=== PATIENT | male | born 1955 | race Caucasian/White ===

== ENCOUNTER 2019-08-08 09:14 | Outpatient (CLI) | payer MEDICARE, OTHER, SELFPAY ==
--- NOTE | 2019-08-08 11:00 | NEURO_ITS ---
Patient Number: [id number] Impression: # Complains of right hand numbness. # Right Carpal Tunnel Syndrome of severe degree. # No ulnar neuropathy. # Normal needle/EMG exam. Nerve Conduction Studies Anti Sensory Summary Table Stim Site NR Peak (ms) P-T Amp (?V) Site1 Site2 Delta-P (ms) Dist (cm) Sushant (m/s) Right Median Anti Sensory (2-3nd Digit) Wrist 4.5 13.8 Wrist 2-3nd Digit 4.5 14.0 31 Wrist 6.3 51.1 Wrist 2-3nd Digit 4.5 14.0 31 Right Radial Anti Sensory (Base 1st Digit) Wrist 2.9 15.9 Wrist Base 1st Digit 2.9 0.0 Right Ulnar Anti Sensory (5th Digit) Wrist 2.7 10.4 Wrist 5th Digit 2.7 14.0 52 Motor Summary Table Stim Site NR Onset (ms) O-P Amp (mV) Site1 Site2 Delta-0 (ms) Dist (cm) Sushant (m/s) Right Median Motor (Abd Poll Brev) Wrist 6.2 0.5 Elbow Wrist 5.0 29.0 58 Elbow 11.2 0.7 Right Ulnar Motor (Abd Dig Minimi) Wrist 2.7 6.0 A Elbow Wrist 5.1 31.0 61 A Elbow 7.8 4.4 F Wave Studies NR F-Lat (ms) L-R F-Lat (ms) Right Median (Mrkrs) (Abd Poll Brev) 33.44 Right Ulnar (Mrkrs) (Abd Dig Min) 30.24 EMG Side Muscle Nerve Root Ins Act Fibs Amp Dur Recrt Comment Right 1stDorInt Ulnar C8-T1 Nml Nml Nml Nml Nml Right Ext Indicis Radial (Post Int) C7-8 Nml Nml Nml Nml Nml Right Ext Digitorum Radial (Post Int) C7-8 Nml Nml Nml Nml Nml Right BrachioRad Radial C5-6 Nml Nml Nml Nml Nml Right PronatorTeres Median C6-7 Nml Nml Nml Nml Nml Right Abd Poll Brev Median C8-T1 Nml Nml Nml Nml Nml MTDD
== END 2019-08-08 09:15 | disposition home or self-care (01) ==
PROVIDERS: PCP Internal Medicine; Visit Provider Surgery Plastic and Reconstructive Surgery
DX: R53.1 Weakness (principal); G56.01 Carpal tunnel syndrome, right upper limb
CPT/HCPCS: 95886; 95909

== ENCOUNTER → 2019-09-11 13:06 | Outpatient (REF) | payer MEDICARE, OTHER, SELFPAY | LOC: ANHLAB 13:06 | PROVIDERS: PCP Internal Medicine; Visit Provider Surgery Plastic and Reconstructive Surgery | DX: D49.2 Neoplasm of unspecified behavior of bone, soft tissue, and skin (principal); L72.11 Pilar cyst | CPT/HCPCS: 88304; 88305 ==

== ENCOUNTER 2020-02-09 10:55 | Outpatient (CLI) | payer MEDICARE, OTHER, SELFPAY ==
--- NOTE | ~2020-02-09 | XR_ITS ---
EXAMINATION: XR hand RT min 3V DATE: 02/09/2020 11:12 INDICATION: Right hand osteoarthritis and pain. TECHNIQUE: 3 views of right hand were obtained. COMPARISON: None. FINDINGS: Bone alignment is normal. No fracture. There is chronic heterotopic ossification at the [place] base of fourth middle phalanx that may be an old fracture. There is mild osteoarthritis of trisca phe joint, first carpometacarpal joint, first through fourth metacarpophalangeal joints, and most of the interphalangeal joints. There is moderate osteoarthritis of third proximal interphalangeal joint. IMPRESSION: 1. Polyarticular osteoarthritis. Reviewed, dictated and finalized at location B.
== END 2020-02-09 10:56 | disposition home or self-care (01) ==
LOC: ANHIMG 10:57
PROVIDERS: PCP Internal Medicine; Visit Provider Plastic Surgery
DX: M19.041 Primary osteoarthritis, right hand (principal)
CPT/HCPCS: 73130

== ENCOUNTER → 2020-02-17 08:13 | Outpatient (CLI) | payer MEDICARE, OTHER, SELFPAY ==
--- NOTE | ~2020-02-17 | MR_ITS ---
EXAMINATION: MR hand RT wo con DATE: 02/17/2020 09:21 INDICATION: Tendon rupture to the right index finger. TECHNIQUE: Magnetic resonance imaging (MRI) of the right hand was performed without intravenous contr ast to include the metacarpals and digits but excluding the proximal carpal row. Sequences included a xial, sagittal and coronal T1-weighted FSE and T2-weighted FS FSE. COMPARISON: None FINDINGS: Is a complete tear of the flexor digitorum profundus tendon to the second digit with the proximal tea r margin located distal to the carpal tunnel at the level of the proximal metaphyseal region of the s econd metacarpal. A discrete distal tear margin is unable to be identified however the tendon does ap pear to be absent at the level of the distal neck of the second proximal phalanx suggesting the tear occurs near the insertion at the base of the middle phalanx. There is mild thickening and increased s ignal radial collateral ligament of the third proximal interphalangeal joint without a discrete fluid signal intensity tear defect or surrounding edema to suggest acute injury and with small amount of h eterotopic ossification evident on prior radiograph consistent with chronic sprain. The remaining fle xor and extensor tendons appear normal. The radial collateral ligament complexes at the metacarpophal angeal and interphalangeal joints appear otherwise normal although sensitivity and specificity is low er than with a smaller field of view study of the digits. Mild osteoarthritis at the first metacarpop halangeal and multiple predominantly distal interphalangeal joints. No joint effusions. 2.6 x 1.5 x 3 .9 cm fusiform intramuscular lipoma within the thenar eminence near the junction of the abductor poll icis brevis and opponens pollicis muscles. Postoperative change of prior carpal tunnel release with d efect in the flexor retinaculum. No thickening or abnormal signal of the median nerve. The flexor ten dons within the second flexor digitorum profundus tendons appear normal at the carpal tunnel. Visuali zed portions of Guyon's canal and the ulnar nerve and artery are unremarkable. IMPRESSION: 1. Full-thickness tear likely at or near the insertion of the second flexor digitorum profundus tendo n. 2. Scarring and heterotopic ossification consistent with chronic sprain of the radial collateral liga ment of the third proximal interphalangeal joint. 3. 2.6 x 1.5 x 2.9 cm intramuscular lipoma in the thenar musculature. 4. Postoperative change of prior carpal tunnel release. Reviewed, dictated and finalized at location A. IMPRESSION: 1. Full-thickness tear likely at or near the insertion of the second flexor dig itorum profundus tendon. 2. Scarring and heterotopic ossification consistent with chronic sprain of the radial collateral ligament of the third proximal interphalangeal joint. 3. 2.6 x 1.5 x 2.9 cm intramuscular lipoma in the thenar musculature. 4. Postoperative change of prior carpal tunnel release.
--- NOTE | ~2020-02-17 | MR_ITS ---
EXAMINATION: MR wrist RT wo con DATE: 02/17/2020 09:22 INDICATION: Tendon rupture to the right index finger TECHNIQUE: Magnetic resonance imaging (MRI) of the right wrist was performed without intravenous cont rast. Sequences performed include axial PD-weighted FSE and PD-weighted FS FSE, coronal PD-weighted F S FSE and T1-weighted SE, and sagittal PD-weighted FS FSE and PD-weighted FSE. COMPARISON: None FINDINGS: Intrinsic ligaments: Partial tear of the dorsal component of the scapholunate ligament. The central membranous component i n the volar component remain intact. The lunotriquetral ligament is normal. Triangular fibrocartilage complex (TFCC): Partial tear of the central fibrocartilaginous disc as well as the dorsal radioulnar ligament compone nts and ulnar styloid attachments of the triangular fibrocartilage complex. The volar radioulnar liga ment as well as the foveal attachment remain intact. The extensor carpi ulnaris tendon sheath is norm al. Extensor wrist: There is tendinopathy and longitudinal split tearing of the distal abductor pollicis longus tendon. E xtensor tendons of the wrist are otherwise normal. No tenosynovitis. Flexor wrist: There is a complete tear of the second flexor digitorum superficialis tendon with the proximal tear m argin located at the level of the proximal diaphysis of the second metacarpal. The visualized portion s of the remaining flexor tendons of the wrist are otherwise normal. There is a defect in the flexor retinaculum consistent with prior carpal tunnel release. No abnormality in the carpal tunnel with nor mal median nerve. Guyon's canal: Guyon's canal including the ulnar nerve and artery are normal. Bones/other: There is dorsal rotatory subluxation of the lunate with increased lunocapitate angle of 35 degrees an d borderline increased scapholunate angle of 75 degrees likely related to the tear of the dorsal comp onent of the scapholunate ligament. Alignment is otherwise normal. No fracture. Mild polyarticular os teoarthritis of the wrist and carpus including at the distal radioulnar joint. Subarticular edema and cystic change at the ulnar side of the distal ulna could be related to either the distal radioulnar osteoarthritis or potentially arthritis at the wrist joint. Nonuniform joint space narrowing the midc arpal joint at the scaphoid capitate articulation with subarticular edema and eburnation. Minimal sub articular edema at both sides of the radiolunate articulation. Finally there small marginal osteophyt es at the first carpometacarpal joint with tiny focus of subarticular edema at the base of the first metacarpal. Multilobulated ganglion cyst measuring 1.6 x 0.6 x 1.2 cm arising from the volar side of the radioscaphoid articulation and positioned between the radial artery neurovascular bundle, the fle xor carpi radialis tendon and the with grouped flexor digitorum profundus and superficialis tendons. IMPRESSION: 1. Complete tear of the second flexor digitorum profundus tendon occurring distal to the carpal tunne l. See separate MRI of the hand for further detail. 2. Partial tear of multiple components of the triangular fibrocartilage complex. 3. 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 4. Mild polyarticular osteoarthritis at the wrist and carpus. 5. Postoperative change of prior carpal tunnel release. Reviewed, dictated and finalized at location A. IMPRESSION: 1. Complete tear of the second flexor digitorum profundus tendon occurring dist al to the carpal tunnel. See separate MRI of the hand for further detail. 2.
== END ==
PROVIDERS: Visit Provider Plastic Surgery
DX: M66.241 Spontaneous rupture of extensor tendons, right hand (principal); S66.112A Strain of flexor muscle, fascia and tendon of right middle finger at wrist and hand level, initial encounter; S63.501A Unspecified sprain of right wrist, initial encounter; M19.031 Primary osteoarthritis, right wrist; D17.9 Benign lipomatous neoplasm, unspecified
CPT/HCPCS: 73218; 73221

== ENCOUNTER 2020-08-06 09:03 | Outpatient (CLI) | payer MEDICARE, OTHER, SELFPAY ==
--- NOTE | 2020-08-19 14:13 | WPDHOMESLEEP ---
Sleep Study - Home Unattended Date of Study: 08/06/20 Ordering Provider: Bandar Miles MD Interpreting Provider: Winsome Logan MD Home Sleep Study Type: Apnea Link Air Height: 1.78 m Weight: 97.522 kg Body Mass Index: 30.8 Neck Circumference (inches): 16.5 [place]: 13 Reason for Sleep Study Erythrocytosis; loud snoring, non refreshing sleep Sleep History Skip Hill is a 65 year old man who used CPAP 10 tor 15 years ago. Since then, he has lost weight and reported that his snoring was much improved. His primary care doctor was concerned with his increasing red blood cell count and wanted to evaluate for sleep apnea. The patient does not feel rested after an average night of sleep. He wakes up 2 or 3 times at night. His sleep is fragmented. He takes naps throughout the day. he does not awaken from sleep feeling short of breath. He occasionally awakens at night with heartburn, belching or coughing. He occasionally has trouble sleep with a cold. He rarely wakes up gasping for breath at night. He occasionally has breathing problems at night observed by others. He frequently sweats excessively. He rarely notices his heart pounding or beating irregularly. He frequently falls asleep during the day, occasionally involuntarily never while driving. He does not have loss of muscle tone was strong emotion. He rarely has daytime difficulties due to excessive sleepiness. 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 He does not feel paralyzed on waking or falling asleep. Does not have vivid dreamlike scenes upon awakening or falling asleep. He does not feel afraid to go to sleep. He rarely has nightmares. He rarely remembers his dreams. He occasionally has racing thoughts. He does not feel sad pressed or anxious. He occasionally has muscular tension. He occasionally notices parts of his body jerking. He occasionally kicks at night and occasionally has crawling and aching feelings in his legs. He occasionally has leg pain at night. He does not have morning jaw pain. He does not grind his teeth at night, is not bothered by pain during the day and is not awakened by pain during the night. He occasionally wakes up feeling stiff in the morning with sore achy muscles and pain in the neck and spine. Normal bedtime is 10:30 p.m. falling asleep within 30 minutes waking 3 times at night to urinate, reposition and try to go back to sleep. He is able to return to sleep and 10 minutes. He wakes the morning between 430 and 5:00 a.m.. Weekend schedule id the same although he may stay awake until 11:00 p.m.. 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 He does take naps in the afternoon or evening, sometimes as long as 3 hours. A short nap is not refreshing. He is usually drowsy in the morning for 1 hour or longer. Habits: Cigars 4 per day. He does drink caffeine. No mention of alcohol or recreational drugs. [facility] Past Medical History Medical History Aortic valve sclerosis Benign essential hypertension BMI 29.0-29.9,adult BMI 30.0-30.9,adult Chronic acquired lymphedema Diastolic dysfunction DM type 2 (diabetes mellitus, type 2) Encounter for preventive health examination Encounter for routine adult health examination without abnormal findings Encounter for special screening examination for neoplasm of prostate Hypersomnolence Hypogonadism in male Lipoma Mixed hyperlipidemia Need for influenza vaccination On [facility] drug therapy MAIRA (obstructive sleep apnea) Polycythemia Vitamin B12 deficiency Family History Family History Mother Hypertension Family history of diabetes mellitus in first degree relative Diabetes mellitus Father Family history of diabetes mellitus in first degree relative Family history of heart disease in male family member before age 55 Diabetes mellitus Social History Social H
[2020-08-19 14:15] VITALS: BMI 30.8
== END 2020-08-06 09:04 | disposition home or self-care (01) ==
LOC: ANHCSM 09:04
PROVIDERS: Family Provider Internal Medicine; PCP Internal Medicine; Visit Provider Internal Medicine
DX: G47.10 Hypersomnia, unspecified (principal); G47.33 Obstructive sleep apnea (adult) (pediatric)
CPT/HCPCS: 95806

== ENCOUNTER → 2020-08-26 02:57 | Outpatient (CLI) | payer MEDICARE, OTHER, SELFPAY ==
[2020-08-26 21:05] LABS: SARS-CoV-2 RNA PCR Negative
== END ==
PROVIDERS: PCP Internal Medicine; Visit Provider Internal Medicine Critical Care Medicine
DX: Z01.812 Encounter for preprocedural laboratory examination (principal); Z20.822 Contact with and (suspected) exposure to COVID-19
CPT/HCPCS: C9803; U0003; U0005

== ENCOUNTER 2020-08-28 09:05 | Outpatient (CLI) | payer MEDICARE, OTHER, SELFPAY ==
--- NOTE | 2020-09-10 15:55 | WPDSLEEPSTUD ---
Sleep Study Ordering Provider: Bandar Miles MD Interpreting Physician: José Miguel Johnston MD Sleep Study Type: CPAP Titration Height: 1.78 m Weight: 96.615 kg Body Mass Index: 30.5 Neck Circumference (inches): 15 [place]: 9 Reason for Sleep Study Patient has had prior sleep studies including a recent home sleep study in July of 2020 showing presence of severe obstructive sleep apnea. Since the initial diagnosis some years ago the patient reportedly has lost weight but continues to have daytime symptomatology including daytime sleepiness and has erythrocytosis which is believed to be secondary form of polycythemia. Sleep History History of snoring,. history of poor quality sleep, daytime sleepiness. [facility] Past Medical History Medical History Aortic valve sclerosis Benign essential hypertension BMI 29.0-29.9,adult BMI 30.0-30.9,adult Chronic acquired lymphedema Diastolic dysfunction DM type 2 (diabetes mellitus, type 2) Encounter for preventive health examination Encounter for routine adult health examination without abnormal findings Encounter for special screening examination for neoplasm of prostate Hypersomnolence Hypogonadism in male Lipoma Mixed hyperlipidemia Need for influenza vaccination On [facility] drug therapy MAIRA (obstructive sleep apnea) Polycythemia Vitamin B12 deficiency Family History Family History Mother Hypertension Family history of diabetes mellitus in first degree relative Diabetes mellitus Father Family history of diabetes mellitus in first degree relative Family history of heart disease in male family member before age 55 Diabetes mellitus Social History Social History Smoking packs per day: 1 Smoking cigarettes per day: 20.0 Years smoked: 40 Smoking pack-years: 40.00 Smoking status: Current some day smoker Tobacco type: cigars Second hand tobacco smoke exposure: No Alcohol intake: never Gender identity (if verbalized by the patient): Male Spiritual care concerns: No Medications Home Medications Medication Instructions Recorded Confirmed Type blood-glucose meter #1 each 06/22/19 07/17/20 Rx coenzyme Q10 10 mg capsule 10 mg PO ONCE 06/22/19 07/17/20 History mecobalamin (vitamin B12) 1,000 1,000 mcg SUBLINGUAL DAILY 06/22/19 07/17/20 History mcg disintegrating tablet,sublingual tamsulosin 0.4 mg capsule 0.4 mg PO DAILY 06/22/19 07/17/20 History testosterone cypionate 200 mg/mL 200 mg IM MONTHLY 06/22/19 07/17/20 History intramuscular oil lancets 23 gauge #100 each 06/26/19 07/17/20 Rx blood sugar diagnostic #100 each 06/28/19 07/17/20 Rx diltiazem HCl 240 mg 480 mg PO DAILY #180 cap 02/13/20 07/17/20 Rx capsule,extended release 24 hr glimepiride 2 mg tablet See Rx Instructions .ROUTE 03/04/20 07/17/20 Rx .COMPLEX #90 tablet icosapent ethyl 1 gram capsule See Rx Instructions .ROUTE 05/30/20 07/17/20 Rx .COMPLEX #360 cap hydrochlorothiazide 12.5 mg tablet See Rx Instructions .ROUTE 08/07/20 Rx .COMPLEX #90 tablet losartan 50 mg tablet See Rx Instructions .ROUTE 08/13/20 Rx .COMPLEX #180 tablet empagliflozin 10 mg tablet 10 mg PO DAILY #90 tablet 08/15/20 Rx metformin 1,000 mg tablet See Rx Instructions .ROUTE 08/15/20 Rx .COMPLEX #180 tablet niacin 1,000 mg tablet,extended See Rx Instructions .ROUTE 08/15/20 Rx release 24 hr .COMPLEX #90 tablet rosuvastatin 10 mg tablet See Rx Instructions .ROUTE 08/15/20 Rx .COMPLEX #90 tablet clindamycin HCl 300 mg PO Q6H #30 cap 09/10/20 Rx Sleep Procedure patient underwent overnight polysomnography devoted to positive airway pressure titration. Patient used rest med P 10 nasal pillows of medium size. Sleep Architecture Total recording time 449 minutes, total sleep time 333 minutes, sleep effic
[2020-09-10 16:05] VITALS: BMI 30.5
== END 2020-08-28 09:06 | disposition home or self-care (01) ==
LOC: ANHCSM 09:05
PROVIDERS: PCP Internal Medicine; Visit Provider Internal Medicine
DX: G47.33 Obstructive sleep apnea (adult) (pediatric) (principal)
CPT/HCPCS: 95811

== ENCOUNTER 2020-09-10 10:01 | Emergency (ER) | payer MEDICARE, OTHER, SELFPAY ==
--- NOTE | ~2020-09-10 | US_ITS ---
EXAMINATION: US venous doppler [facility] EXAM DATE: 09/10/2020 12:21 INDICATION: Left leg swelling, cellulitis versus Malik's cyst. TECHNIQUE: Multiple grayscale, color flow and Doppler images of the left lower extremity deep venous system were obtained and reviewed. Comparison is made to prior examination from 05/26/2013. FINDINGS: The left common femoral, femoral and profunda veins demonstrate normal color flow, respirat ory variation, augmentation and compressibility. Compressibility, color flow confirmed within the le ft popliteal, posterior tibial, peroneal, and greater saphenous veins. No Malik's cyst. IMPRESSION: 1. No left lower extremity deep venous thrombosis. Reviewed, dictated and finalized at location A.
[2020-09-10 10:20] VITALS: BP 160/97; PULSE 80; RESP 18; TEMP 36.3; O2SAT 98
[2020-09-10 10:37] VITALS: BP 165/73; PULSE 70; RESP 16; TEMP 36.3; O2SAT 100
[2020-09-10 10:49] LABS: Basophils Absolute Auto 0.1 K/mm3 (0.0-0.1); Basophils Percent Auto 0.6 % (0.2-1.2); Eosinophils Absolute Auto 0.2 K/mm3 (0-0.3); Eosinophils Percent Auto 1.5 % (0-4.4); Hematocrit 48.1 % (42.0-52.0); Hemoglobin 16.1 g/dL (14.0-18.0); Immature Granulocyte Absolute 0.11 K/mm3 (0.00-0.031); Immature Granulocyte Percent A 0.8 % (0-0.5); Lymphocytes Absolute Auto 2.43 K/mm3 (0.9-3.2); Lymphocytes Percent Auto 18.7 % (18.3-44.2); Mean Corpuscular HGB Conc 33.5 g/dl (32-36); Mean Corpuscular Hemoglobin 30.4 pg (26-34); Mean Corpuscular Volume 90.8 fl (80-100); Mean Platelet Volume 9.2 fl (7.4-10.4); Monocytes Absolute Auto 1.1 K/mm3 (0.1-0.6); Monocytes Percent Auto 8.8 % (2.6-8.5); Neutrophils Percent Auto 69.6 % (45.5-73.1); Platelet Count Result 341 k/mm3 (150-375); Red Cell Distribution Width 13.7 % (11.5-14.5)
[2020-09-10 11:00] LABS: Alanine Aminotransferase 22 U/L (4-50); Albumin Level 4.5 g/dL (3.5-5.1); Alkaline Phosphatase 78 U/L (38-126); Anion Gap 10 mmol/L (8-16); Aspartate Amino Transferase 25 U/L (17-59); Bilirubin,Total 0.9 mg/dL (0.2-1.3); Blood Urea Nitrogen 19 mg/dL (9-20); Calcium 9.5 mg/dL (8.4-10.2); Carbon Dioxide 28 mmol/L (22-30); Chloride 100 mmol/L (98-107); Estimated CRCL calculation 105 ml/min; Estimated Glomerular Filt Rate > 60; Glucose 297 mg/dL (75-110); Sodium 138 mmol/L (137-145)
[2020-09-10 12:52] VITALS: BP 162/71; PULSE 63; RESP 17; O2SAT 95
--- NOTE | 2020-09-10 13:05 | ED.LOWEXIN ---
HPI - Extremity Injury (Lower) General Chief Complaint: Extremity Injury, Lower Stated Complaint: poss left leg cellulitis Time Seen by Provider: 09/10/20 10:46 Source: patient Mode of arrival: ambulatory Limitations: no limitations History of Present Illness HPI Narrative: 65-year-old male Patient reports that he popped his left hamstring last week just by stepping off of the bottom step of a stepladder He had immediate pain and then a significant amount of swelling and ecchymosis The thigh pain is calm down and a lot of the swelling subsequently settled into his calf A couple of days after that he started having mild erythema and warmth and tenderness to an area over the anterior flores Patient notes that he has had cellulitis 20 times previously and he is often required admission for it Related Data Home Medications Medication Instructions Recorded Confirmed coenzyme Q10 10 mg capsule 10 mg PO ONCE 06/22/19 07/17/20 mecobalamin (vitamin B12) 1,000 1,000 mcg SUBLINGUAL DAILY 06/22/19 07/17/20 mcg disintegrating tablet,sublingual tamsulosin 0.4 mg capsule 0.4 mg PO DAILY 06/22/19 07/17/20 testosterone cypionate 200 mg/mL 200 mg IM MONTHLY 06/22/19 07/17/20 intramuscular oil Allergies Allergy/AdvReac Type Severity Reaction Status Date / Time No Known Allergies Allergy Verified 09/10/20 10:23 Review of Systems Review of Systems: All systems reviewed & are unremarkable except as noted in HPI and below Constitutional: Constitutional: Denies chills, Denies fatigue, Denies fever(s), Denies headache(s) and Denies weakness Eyes: Eyes: Reports no additional eye complaints and Denies change in vision ENT: Denies headache(s) Cardiovascular: Cardiovascular: Denies chest pain, Denies leg edema, Denies palpitations and Denies dyspnea Respiratory: Respiratory: Denies cough and Denies dyspnea Gastrointestinal: Gastrointestinal: Denies abdominal pain, Denies nausea and Denies vomiting Musculoskeletal: Musculoskeletal: Denies deformity, Reports arthralgias, Reports joint swelling, Denies muscle weakness and Denies numbness Integumentary/Breasts: Skin/Breast: Reports rash and Denies wounds Neurologic: Denies headache(s), Denies focal weakness, Denies numbness and Denies weakness Psychiatric: Psychiatric: Reports no additional psychiatric complaints Endocrine: Endocrine: Denies fatigue and Denies palpitations Hematologic/Lymphatic: Hematologic/Lymphatic: Denies easy bleeding and Denies easy bruising Allergic/Immunologic: Allergic/Immunologic: Denies wheezing PMFSH Past Medical History Medical History Aortic valve sclerosis Benign essential hypertension BMI 29.0-29.9,adult BMI 30.0-30.9,adult Chronic acquired lymphedema Diastolic dysfunction DM type 2 (diabetes mellitus, type 2) Encounter for preventive health examination Encounter for routine adult health examination without abnormal findings Encounter for special screening examination for neoplasm of prostate Hypersomnolence Hypogonadism in male Lipoma Mixed hyperlipidemia Need for influenza vaccination [facility] MAIRA (obstructive sleep apnea) Polycythemia Vitamin B12 deficiency Family History Family History Mother Hypertension Family history of diabetes mellitus in first degree relative Diabetes mellitus Father Family history of diabetes mellitus in first degree relative Family history of heart disease in male family member before age 55 Diabetes mellitus Social History Social History Smoking packs per day: 1 Smoking cigarettes per day: 20.0 Years smoked: 40 Smoking pack-years: 40.00 Smoking status: Current some day smoker Tobacco type: cigars Second hand tobacco smoke exposure: No Alcohol intake: never Gender identity (if verbalized by the
== END 2020-09-10 13:44 | disposition home or self-care (01) ==
PROVIDERS: Emergency Provider Emergency Medicine; PCP Internal Medicine
DX: L03.116 Cellulitis of left lower limb (principal); I35.8 Other nonrheumatic aortic valve disorders; I10 Essential (primary) hypertension; I89.0 Lymphedema, not elsewhere classified; E11.9 Type 2 diabetes mellitus without complications; E78.2 Mixed hyperlipidemia; G47.33 Obstructive sleep apnea (adult) (pediatric); G47.10 Hypersomnia, unspecified; E53.8 Deficiency of other specified B group vitamins; F17.290 Nicotine dependence, other tobacco product, uncomplicated
CPT/HCPCS: 36415; 80053; 85025; 93971; 99284

== ENCOUNTER → 2021-05-26 13:41 | Outpatient (CLI) | payer MEDICARE, OTHER, SELFPAY ==
--- NOTE | ~2021-05-26 | US_ITS ---
US scrotum doppler INDICATION: Cristina: Aneurysm. TECHNIQUE: Testicular sonogram utilizing grayscale and color Doppler FINDINGS: The testes are normal in size and appearance. No focal lesions are seen. The right testes measures 3.7 x 2 x 2.8 cm centimeters, and the left testis measures 3 x 2.2 x 2.3 cm cm. There is nor mal vascular flow to both testes. The right and left epididymides appear normal. There are small hydroceles. There are bilateral varicoceles. IMPRESSION: 1. Bilateral varicoceles. 2: Small bilateral hydroceles. Reviewed, dictated and finalized at location A. [employer]
== END ==
PROVIDERS: PCP Internal Medicine; Visit Provider Internal Medicine Endocrinology, Diabetes & Metabolism
DX: E29.1 Testicular hypofunction (principal); I86.1 Scrotal varices; N43.3 Hydrocele, unspecified
CPT/HCPCS: 76870; 93976

== ENCOUNTER → 2021-06-17 02:05 | Outpatient (CLI) | payer MEDICARE, OTHER, SELFPAY ==
[2021-06-17 20:10] LABS: SARS-CoV-2 RNA PCR Negative
== END ==
PROVIDERS: PCP Internal Medicine; Visit Provider Internal Medicine Gastroenterology
DX: Z01.812 Encounter for preprocedural laboratory examination (principal); Z20.822 Contact with and (suspected) exposure to COVID-19
CPT/HCPCS: C9803; U0003; U0005

== ENCOUNTER 2021-06-20 02:05 | Day surgery (SDC) | payer MEDICARE, OTHER, SELFPAY ==
[2021-06-03 09:45] VITALS: BMI 30.9
--- NOTE | 2021-06-19 14:41 | WPDANESEPPF ---
Anes - Initial Pre Proc Eval Procedure: Operation Date: 06/20/21 09:00 Proposed Procedures p Screening Colonoscopy - Krystian Brady MD Date/Time: 06/19/21 14:41 Surgeon: Krystian Brady MD Pre Op Diagnosis: neoplasm screening Patient Data Age: 66 Gender: M Height: 1.78 m Weight: 98 kg Allergies Allergy/AdvReac Type Severity Reaction Status Date / Time No Known Allergies Allergy Verified 06/20/21 08:11 Home Medications Medication Instructions Recorded Confirmed Type blood-glucose meter #1 each 06/22/19 06/20/21 Rx coenzyme Q10 10 mg capsule 10 mg PO DAILY 06/22/19 06/20/21 History mecobalamin (vitamin B12) 1,000 1,000 mcg SUBLINGUAL DAILY 06/22/19 06/20/21 History mcg disintegrating tablet,sublingual lancets 23 gauge #100 each 06/26/19 06/20/21 Rx empagliflozin 10 mg tablet 10 mg PO DAILY #90 tablet 08/15/20 06/20/21 Rx hydroxychloroquine 200 mg tablet 200 mg PO WEEKLY tablet 12/05/20 06/20/21 History blood sugar diagnostic #100 each 04/22/21 06/20/21 Rx folic acid 800 mcg tablet 0.8 mg PO DAILY 04/22/21 06/20/21 History pen needle, diabetic 32 gauge x #50 ea 04/22/21 06/20/21 Rx 1/4 semaglutide 0.5 mg SUBCUT WEEKLY #4.5 ml 04/22/21 06/20/21 Rx ascorbic acid (vitamin C) 500 mg PO DAILY 06/03/21 06/20/21 History cholecalciferol (vitamin D3) 25 mcg PO DAILY 06/03/21 06/20/21 History [Vitamin D3] diltiazem HCl 240 mg PO DAILY 06/03/21 06/20/21 History glimepiride 2 mg PO DAILY 06/03/21 06/20/21 History icosapent ethyl [Vascepa] 2 g PO BID 06/03/21 06/20/21 History losartan 100 mg PO DAILY 06/03/21 06/20/21 History metformin 1,000 mg PO BID 06/03/21 06/20/21 History niacin 1,000 mg PO DAILY 06/03/21 06/20/21 History rosuvastatin 10 mg PO DAILY 06/03/21 06/20/21 History tamsulosin 0.4 mg PO DAILY 06/03/21 06/20/21 History zinc 100 mg PO DAILY 06/03/21 06/20/21 History hydrochlorothiazide 12.5 mg tablet See Rx Instructions .ROUTE 06/17/21 06/20/21 Rx .COMPLEX #90 tablet Patient hx anesthesia problems: none Family hx anesthesia problems: none Results Review: All pre-operative results and documents have been reviewed as part of the pre-operative evaluation. [facility] Past Medical History Medical History (Updated 04/22/21 @ 09:57 by Shantelle Paul [facility]) Aortic valve sclerosis Benign essential hypertension BMI 29.0-29.9,adult BMI 30.0-30.9,adult BMI 31.0-31.9,adult BMI 32.0-32.9,adult Cataracts, bilateral Cellulitis Chronic acquired lymphedema Colon cancer screening Diastolic dysfunction DM type 2 (diabetes mellitus, type 2) Elevated homocysteine Encounter for preventive health examination Encounter for routine adult health examination without abnormal findings Encounter for special screening examination for neoplasm of prostate Follow up Hamstring injury Hypersomnolence Hypogonadism in male Lipoma Mixed hyperlipidemia Need for influenza vaccination On detention drug therapy MAIRA on CPAP Polycythemia Tobacco abuse Vitamin B12 deficiency Family History Family History Mother Hypertension Family history of diabetes mellitus in first degree relative Diabetes mellitus Father Family history of diabetes mellitus in first degree relative Family history of heart disease in male family member before age 55 Diabetes mellitus Social History Social History Smoking packs per day: 1 Smoking cigarettes per day: 20.0 Years smoked: 40 Smoking pack-years: 40.00 Smoking status: Current some day smoker Tobacco type: cigars Second hand tobacco smoke exposure: No Alcohol intake: current Drinks per week: 1 Alcohol use details: rarely Living arrangements: with family Gender identity (if verbalized by the patient): Male Spiritual care concerns: No Anes - Eval Final PreProcedure Day of Procedure 06/19/21 14:41 Patient weight: obese Heart: regul
[2021-06-20 08:13] VITALS: BP 164/82; PULSE 64; RESP 17; TEMP 36.6; O2SAT 99; BMI 31.2
[2021-06-20] MEDS: LACTATED RINGERS 1,000 ML 150 ML IV CONT (08:18)
[2021-06-20 08:19] LABS: Glucose Point of Care 174 mg/dl (65-105)
--- NOTE | 2021-06-20 08:51 | WPDGICN ---
Assessment and Plan Assessment and plan (1) Colon cancer screening: Code(s): Z12.11 - Encounter for screening for malignant neoplasm of colon Status: Acute Assessment and Plan: Patient presents for screening colonoscopy. Appears to be at average risk for colon polyps. GI Consult Note Consult date/time: 06/20/21 08:51 HPI: Skip Hill is a 66 year old male Presents for screening colonoscopy. Patient's current weight appetite bowel movements are normal. He denies abdominal pain. He has had no bleeding. Family history is noncontributory. Patient's most recent colonoscopy was 10-12 years prior to this exam. Review of Systems Review of Systems: All systems reviewed & are unremarkable except as noted in HPI and below PMFSH Past Medical History Medical History (Updated 04/22/21 @ 09:57 by Shantelle Paul [facility]) Aortic valve sclerosis Benign essential hypertension BMI 29.0-29.9,adult BMI 30.0-30.9,adult BMI 31.0-31.9,adult BMI 32.0-32.9,adult Cataracts, bilateral Cellulitis Chronic acquired lymphedema Colon cancer screening Diastolic dysfunction DM type 2 (diabetes mellitus, type 2) Elevated homocysteine Encounter for preventive health examination Encounter for routine adult health examination without abnormal findings Encounter for special screening examination for neoplasm of prostate Follow up Hamstring injury Hypersomnolence Hypogonadism in male Lipoma Mixed hyperlipidemia Need for influenza vaccination On mcc drug therapy MAIRA on CPAP Polycythemia Tobacco abuse Vitamin B12 deficiency Family History Family History Mother Hypertension Family history of diabetes mellitus in first degree relative Diabetes mellitus Father Family history of diabetes mellitus in first degree relative Family history of heart disease in male family member before age 55 Diabetes mellitus Social History Social History Smoking packs per day: 1 Smoking cigarettes per day: 20.0 Years smoked: 40 Smoking pack-years: 40.00 Smoking status: Current some day smoker Tobacco type: cigars Second hand tobacco smoke exposure: No Alcohol intake: current Drinks per week: 1 Alcohol use details: rarely Living arrangements: with family Gender identity (if verbalized by the patient): Male Spiritual care concerns: No Meds Home Medications and Allergies Home Medications Medication Instructions Recorded Confirmed Type blood-glucose meter #1 each 06/22/19 06/20/21 Rx coenzyme Q10 10 mg capsule 10 mg PO DAILY 06/22/19 06/20/21 History mecobalamin (vitamin B12) 1,000 1,000 mcg SUBLINGUAL DAILY 06/22/19 06/20/21 History mcg disintegrating tablet,sublingual lancets 23 gauge #100 each 06/26/19 06/20/21 Rx empagliflozin 10 mg tablet 10 mg PO DAILY #90 tablet 08/15/20 06/20/21 Rx hydroxychloroquine 200 mg tablet 200 mg PO WEEKLY tablet 12/05/20 06/20/21 History blood sugar diagnostic #100 each 04/22/21 06/20/21 Rx folic acid 800 mcg tablet 0.8 mg PO DAILY 04/22/21 06/20/21 History pen needle, diabetic 32 gauge x #50 ea 04/22/21 06/20/21 Rx 1/4 semaglutide 0.5 mg SUBCUT WEEKLY #4.5 ml 04/22/21 06/20/21 Rx ascorbic acid (vitamin C) 500 mg PO DAILY 06/03/21 06/20/21 History cholecalciferol (vitamin D3) 25 mcg PO DAILY 06/03/21 06/20/21 History [Vitamin D3] diltiazem HCl 240 mg PO DAILY 06/03/21 06/20/21 History glimepiride 2 mg PO DAILY 06/03/21 06/20/21 History icosapent ethyl [Vascepa] 2 g PO BID 06/03/21 06/20/21 History losartan 100 mg PO DAILY 06/03/21 06/20/21 History metformin 1,000 mg PO BID 06/03/21 06/20/21 History niacin 1,000 mg PO DAILY 06/03/21 06/20/21 History rosuvastatin 10 mg PO DAILY 06/03/21 06/20/21 History tamsulosin 0.4 mg PO DAILY 06/03/21 06/20/21 History zinc 100 mg PO DAILY 06/03/21 06/20/21 History hydrochlorothiazide 12.5 mg tablet
[2021-06-20 09:18] VITALS: BP 147/76; PULSE 62; RESP 15; O2SAT 97
[2021-06-20 09:28] VITALS: BP 160/82; PULSE 68; RESP 17; O2SAT 98
[2021-06-20 09:36] VITALS: BP 163/89; PULSE 68; RESP 21; O2SAT 99
== END 2021-06-20 09:45 | disposition home or self-care (01) ==
PROVIDERS: PCP Internal Medicine; Visit Provider Internal Medicine Gastroenterology
PROC: 0DJD8ZZ Inspection of Lower Intestinal Tract, Via Natural or Artificial Opening Endoscopic (ICD-10-PCS; CPT 45378; principal; 2021-06-20 09:00)
DX: Z12.11 Encounter for screening for malignant neoplasm of colon (principal); D12.4 Benign neoplasm of descending colon; D12.3 Benign neoplasm of transverse colon; K64.8 Other hemorrhoids; K57.30 Diverticulosis of large intestine without perforation or abscess without bleeding; I10 Essential (primary) hypertension; I35.8 Other nonrheumatic aortic valve disorders; I89.0 Lymphedema, not elsewhere classified; E11.9 Type 2 diabetes mellitus without complications; G47.33 Obstructive sleep apnea (adult) (pediatric); E78.2 Mixed hyperlipidemia; D75.1 Secondary polycythemia; E53.8 Deficiency of other specified B group vitamins; F17.290 Nicotine dependence, other tobacco product, uncomplicated; Z79.84 Long term (current) use of oral hypoglycemic drugs; E66.9 Obesity, unspecified; Z68.31 Body mass index [BMI] 31.0-31.9, adult
CPT/HCPCS: 45385; 82948; 88305; J2704; J7120

== ENCOUNTER 2022-12-17 10:48 | Outpatient (CLI) | payer MEDICARE, SELFPAY ==
--- NOTE | ~2022-12-17 | US_ITS ---
EXAMINATION: US venous doppler [facility] DATE: 12/17/2022 11:25 INDICATION: Recurrent cellulitis with swelling and erythema of the left lower limb TECHNIQUE: Grayscale ultrasound images without and with compression and Doppler ultrasound images of the left lower extremity veins were obtained. COMPARISON: 09/10/2020 FINDINGS: The visualized portions of left common femoral vein, profunda (deep) femoral vein, femoral vein, popl iteal vein, peroneal veins, posterior tibial veins, gastrocnemius vein and greater saphenous vein out flow remain patent. IMPRESSION: 1. No deep venous thrombosis in the left lower limb. Reviewed, dictated and finalized at location L.
== END 2022-12-17 10:49 | disposition home or self-care (01) ==
PROVIDERS: PCP Internal Medicine; Visit Provider Internal Medicine
DX: M79.606 Pain in leg, unspecified (principal); M79.89 Other specified soft tissue disorders; R79.89 Other specified abnormal findings of blood chemistry
CPT/HCPCS: 93971

== ENCOUNTER 2023-06-10 09:24 | Outpatient (CLI) | payer MEDICARE, SELFPAY ==
--- NOTE | ~2023-06-10 | US_ITS ---
EXAMINATION:US venous doppler LE LT INDICATION:Left leg pain TECHNIQUE: Multiple grayscale, color flow and Doppler images of the left lower extremity deep venous systems were obtained and reviewed. COMPARISON:12/17/2022 FINDINGS: The common femoral, superficial femoral and popliteal veins demonstrate normal respiratory variation, augmentation and compressibility. Color flow is also seen within the posterior tibial, pe roneal, greater saphenous and profunda veins. IMPRESSION: 1: No lower extremity deep venous thrombosis. Reviewed, dictated and finalized at location L. 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
[2023-06-10 09:54] LABS: Basophils Absolute Auto 0.2 K/mm3 (0.0-0.1); Basophils Percent Auto 1.9 % (0.2-1.2); Eosinophils Absolute Auto 0.2 K/mm3 (0-0.3); Eosinophils Percent Auto 1.4 % (0-4.4); Hematocrit 47.1 % (42.0-52.0); Hemoglobin 15.5 g/dL (14.0-18.0); Immature Granulocyte Absolute 1.12 K/mm3 (0.00-0.031); Immature Granulocyte Percent A 9.7 % (0-0.5); Lymphocytes Absolute Auto 2.77 K/mm3 (0.9-3.2); Lymphocytes Percent Auto 23.9 % (18.3-44.2); Mean Corpuscular HGB Conc 32.9 g/dl (32-36); Mean Corpuscular Hemoglobin 29.1 pg (26-34); Mean Corpuscular Volume 88.5 fl (80-100); Mean Platelet Volume 9.4 fl (7.4-10.4); Monocytes Percent Auto 8.9 % (2.6-8.5); Neutrophils Absolute Auto 6.3 K/mm3 (1.3-6.7); Neutrophils Percent Auto 54.2 % (45.5-73.1); Platelet Count Result 387 k/mm3 (150-375); Red Blood Count 5.32 M/mm3 (4.6-6.20); Red Cell Distribution Width 13.6 % (11.5-14.5); White Blood Count 11.6 K/mm3 (4.5-10.0)
[2023-06-10 10:05] LABS: INR 0.9
[2023-06-10 10:06] LABS: Partial Thromboplastin Time 32.2 SECONDS (22.3-36.8)
== END 2023-06-10 09:25 | disposition home or self-care (01) ==
LOC: ANHIMG 09:25
PROVIDERS: PCP Internal Medicine; Visit Provider Internal Medicine
DX: M79.605 Pain in left leg (principal); M79.89 Other specified soft tissue disorders
CPT/HCPCS: 36415; 85025; 85610; 85730; 93971

== ENCOUNTER 2023-12-24 09:01 | Outpatient (CLI) | payer MEDICARE, SELFPAY ==
--- NOTE | ~2023-12-24 | CT_ITS ---
CT Scan of the Chest without Contrast: Clinical Indication: Lung cancer screening, nicotine dependence Technique: Contiguous sections were acquired throughout the chest without intravenous contrast. Dose reduction technique was used on this scan by utilizing automated exposure control and iterative recon struction technique. The dose-length product (DLP) was 202.33 mGy-cm. Findings: There is no evidence of any significant mediastinal, hilar or axillary lymphadenopathy. The mediastin al soft tissues appear normal. There is no evidence of pleural or pericardial effusion. The lungs are clear. No pulmonary nodules or infiltrates are noted. Images through the upper abdomen reveal no abnormalities. Impression: Lung RADS 1: Negative. 12 month follow-up screening CT advised. Reviewed, dictated and finalized at location . Impression: Lung RADS 1: Negative. 12 month follow-up screening CT advised.
== END 2023-12-24 09:02 | disposition home or self-care (01) ==
PROVIDERS: PCP Internal Medicine; Visit Provider Internal Medicine
DX: Z12.2 Encounter for screening for malignant neoplasm of respiratory organs (principal); Z87.891 Personal history of nicotine dependence
CPT/HCPCS: 71271

== ENCOUNTER 2024-10-10 09:14 | Outpatient (CLI) | payer MEDICARE, SELFPAY ==
--- NOTE | ~2024-10-10 | XR_ITS ---
XR elbow RT 2V Ordering provider: Bandar Miles MD History: . M25.521 - Pain in right elbow . Comparison: None. FINDINGS: BONES: No acute fracture or dislocation. JOINT SPACES: Normal. SOFT TISSUES: No definite joint effusion. Soft tissue swelling with ossification of the insertion of the triceps tendon seen posteriorly. IMPRESSION: No acute osseous abnormality of the right elbow. Reviewed, dictated and finalized at location A.
--- OUTSIDE RECORDS SUMMARY | 2024-10-10 10:02 | XMS_ITS | Clinical Summary ---
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 Gender Identity Not on file Sexual Orientation Not on file Plan of Treatment Health Maintenance Due Date Last Done Comments Hepatitis C Virus (HCV) Screening 1955 TdaP Immunization 1955 Colonoscopy 1999 Colorectal Cancer Screening 1999 Cologuard 02/19/2004 Immunochemical Fecal Occult Blood 02/19/2004 Zoster Immunization (1 of 2) 02/19/2004 PSA Discussion 2009 Pneumococcal Immunization (5 0+ years) (2 of 2 - PPSV23) 03/31/2022 03/31/2021 Influenza Immunization (#1) 02/13/202403/14, 03/29/2020, 02/10/2013 SARS-COV-2 Immunization ( season) 2024 Respiratory Syncytial Virus (RSV) Immunization (Adult) (1 - 1-dose 75+ series) 2029 DTaP/Tdap/Td Immunization Discontinued 02/14/2005 Hepatitis B Immunization Aged Out No longer eligible based on patient's age to complete this topic Meningococcal Immunization (ACWY) Aged Out No longer eligible based on patient's age to complete this topic Rotavirus Immunization Aged Out No lo nger eligible based on patient's age to complete this topic
--- OUTSIDE RECORDS SUMMARY | 2024-10-10 10:02 | XMS_ITS | Clinical Summary ---
Author Organization [facility] Address [address] [place] [id number] Care Team Providers Care Cork Grinder Name Role Phone Bandar Miles MD Primary Care Provider Social History Tobacco Use Types Packs/Day Years Used Date Smoking Tobacco: Never Assessed Sex and Gender Information Value Date Recorded Sex Assigned at Not on file Legal Sex Male 9:30 AM CDT Gender Identity Not on file Sexual Orientation Not on file Plan of Treatment Health Maintenance Due Date Last Done Comments Colorectal Cancer Screening Colonoscopy (10 Years) 1954 Hepatitis C 02/19/1972 DTaP, Tdap and Td Vaccines ( 1 - Tdap) 1973 Pneumococcal Vaccine: 50+ Ye ars (1 of 1 - PCV) 02/19/2004 Zoster Vaccines (1 of 2) 02/19/2004 Annual Medicare Wellness Visit 2019 COVID-19 Vaccine ( - 2023-2 5 season) 2024 RSV Immunization or 60+ Years (1 - 1-dose 75+ series) 2029 Meningococcal B Vaccine Aged Out No l onger eligible based on patient's age to complete this topic Meningococcal Vaccine Aged Out No rand dago eligible based on patient's age to complete this topic RSV Immunizations Under 20 Months Aged Out No longer eligible based on patient's age to complete this topic Insurance MEDICARE Care Teams Cork Grinder Relationship Specialty Start Date End Date Bandar Miles MD [address] [place] [address] PCP - General 11/02/22
--- OUTSIDE RECORDS SUMMARY | 2024-10-10 10:02 | XMS_ITS | Clinical Summary ---
Author Organization [facility] Address [address] [place] [address] Care Team Providers Care Neonatal Surgeon Name Role Phone Bandar Miles MD Primary Care Provider + Allergies No known active allergies Medications glimepiride (AMARYL) 2 mg tablet TAKE 1 TABLET BY MOUTH IN THE MORNING WITH BREAKFAST 03/04/20 20 Active tamsulosin (FLOMAX) 0.4 mg capsule TAKE 1 CAPSULE BY MOUTH EVERY DAY 03/04/20 20 Active losartan (COZAAR) 100 mg tablet Take 100 mg by mouth daily. Active rosuvastatin (CRESTOR) 10 mg tablet Take 10 mg by mouth daily. Active hydroCHLOROthi azide (MICROZIDE) 12.5 mg capsule Take 12.5 mg by mouth daily. Active diltiaZEM (TIAZAC) 240 mg Extended Release capsule Take 240 mg by mouth daily. Active metFORMIN (GLUCOPHAGE) 1,000 mg tablet Take 1,000 mg by mouth 2 times daily with meals. Active hydrOXYchloroQ UINE (PLAQUENIL) 200 mg tablet TAKE 1 TABLET BY MOUTH DAILY FOR 5 DAYS, THEN 1 TABLET ONCE WEEKLY 10/23/19 21 Active Vascepa 1 gram Capsule 11/29/19 21 Active Jardiance 10 mg tablet 10/15/19 22 Active Disposable [place] 18 gauge x 1 Needle WITHDRAW TESTOSTERONE EVERY 10 DAYS X 90 DAYS 10/30/19 22 Active niacin (NIASPAN ER) 1,000 mg Extended Release 24 hour tablet 10/15/19 22 Active Ozempic 0.25 mg or 0.5 mg(2 mg/1.5 mL) Pen Injector 12/17/19 22 Active BD Luer-Tari Syringe 3 mL 25 gauge x 1 Syringe TO INJECT TESTOSTERONE UNDER THE SKIN EVERY 10 DAYS 10/25/19 22 Active Testosterone Enanthate (DELATESTRYL) 200 mg/mL Oil INJECT 1 ML INTRAMUSCULARLY EVERY 10 DAYS 11/18/19 22 Active Active Problems Problem Noted Date Diagnosed Date Testosterone deficiency 11/14/2020 Erythrocytosis 06/18/2020 Family History Medical History Relation Name Comments Heart Disease Father Diabetes Mother Relation Name Status Comments Father Mother Alive Social History Tobacco Use Types Packs/Day Years Used Date Smoking Tobacco: Every Day Cigarettes 3 50 Cigars Smokeless Tobacco: Never Tobacco Cessation:Ready to Q uit: Yes; Counseling Given: No Alcohol Use Standard Drinks/Week Comments Yes 0 (1 standard drink = 0.6 oz pur e alcohol) OCCASIONLLY Sex and Gender Information Value Date Recorded Sex Assigned at Not on file Legal Sex Male 3:07 PM MANDARIN SPEAKING NANNY Gender Identity Not on file Sexual Orientation Not on file Last Filed Vital Signs Vital Sign Reading Time Taken Comments Blood Pressure 161/76 12/19/2021 11:52 AM CDT Pulse 68 12/19/2021 11:52 AM CDT Temperature 36.7 C (98 F) 12/19/2021 11:52 AM CDT Respiratory Rate - - Oxygen Saturation 96% 12/19/2021 11:52 AM CDT Inhaled Oxygen Concentration - - Weight 92.8 kg (204 lb 9.6 oz) 12/19/2021 11:52 AM CDT Height 177.8 cm (5' 10 ) 12/19/2021 11:52 AM CDT Body Mass Index 29.36 12/19/2021 11:52 AM CDT Plan of Treatment Health Maintenance Due Date Last Done Comments DTAP/TDAP/TD VACCINES (1 - Tdap) 1973 PNEUMOCOCCAL VACCINE 50+ YEARS (1 of 2 - PCV) 02/18/19 73 ZOSTER VACCINE (1 of 2) 1973 FIT-DNA Q 3 years 1999 FIT/FOBT Q 1 year 1999 Flex Sig/CT Colonography Q 5 years 1999 RSV VACCINE (60+ or ) (1 - Risk 60-74 years 1-dose series) 2014 INFLUENZA VACCINE (#1) 2024 COLORECTAL SCREENING 06/20/2031 06/20/2021 Colorectal Cancer Screening 06/20/2031 Insurance MEDICARE PART A AND B GENERIC PAYOR Care Teams Neonatal Surgeon Relationship Specialty Start Date End Date Bandar Miles MD [address] [place] [id number] PCP - General Internal Medicine 05/16/20
== END 2024-10-10 09:15 | disposition home or self-care (01) ==
LOC: ANHIMG 09:17
PROVIDERS: PCP Internal Medicine; Visit Provider Internal Medicine
DX: M25.421 Effusion, right elbow (principal); M25.521 Pain in right elbow
CPT/HCPCS: 73070

== ENCOUNTER 2024-12-21 09:33 | Outpatient (CLI) | payer MEDICARE, SELFPAY ==
--- OUTSIDE RECORDS SUMMARY | 2024-12-21 09:38 | XMS_ITS | Clinical Summary ---
Author Organization 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
--- OUTSIDE RECORDS SUMMARY | 2024-12-21 09:38 | XMS_ITS | Clinical Summary ---
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 Gender Identity Not on file Sexual Orientation Not on file Plan of Treatment Health Maintenance Due Date Last Done Comments Hepatitis C Virus (HCV) Screening 1955 TdaP Immunization 1954 Cologuard 1999 Colonoscopy 1999 Colorectal Cancer Screening 1999 Immunochemical Fecal Occult Blood 1999 Zoster Immunization (1 of 2) 02/19/2004 Pneumococcal Immunization (5 0+ years) (2 of 2 - PPSV23) 03/31/2022 03/31/2021 SARS-COV-2 Immunization ( season) 2024 Influenza Immunization (#1) 02/12/202503/14, 03/29/2020, 02/10/2013 Respiratory Syncytial Virus (RSV) Immunization (Adult) (1 - 1-dose 75+ series) 2029 DTaP/Tdap/Td Immunization Discontinued 02/14/2005 Hepatitis B Immunization Aged Out No longer eligible based on patient's age to complete this topic Human Papillomavirus (HPV) Immunization Aged Out No longer eligible based on patient's age to complete this topic Meningococcal Immunization (ACWY) Aged Out No longer eligible based on patient's age to complete this topic Rotavirus Immunization Aged Out No lo nger eligible based on patient's age to complete this topic
--- OUTSIDE RECORDS SUMMARY | 2024-12-21 09:38 | XMS_ITS | Clinical Summary ---
Author Organization [facility] Address [address] [place] [id number] Care Team Providers Care Mult Au Matic Operator Name Role Phone Bandar Miles MD Primary Care Provider [phone] Social History Tobacco Use Types Packs/Day Years [...] complete this topic Insurance MEDICARE Care Teams Mult Au Matic Operator Relationship Specialty Start Date End Date Bandar Miles MD [address] [place] [address] PCP - General 11/02/22
--- NOTE | 2024-12-21 09:51 | ECHO_ITS ---
Patient Info Name: Skip Hill Age: 69 years : 1955 Gender: Male Ht: 70 in Wt: 210 lbs BSA: 2.19 m2 HR: 77 bpm BP: 168 / 87 mmHg Technical Quality: Good Exam Date: 12/21/2024 10:03 AM Patient Status: O Admit Date: 12/21/2024 Exam Type: CA echo doppler color flow Complete two-dimensional, color flow and Doppler transthoracic echocardiogram is performed. Asset Recovery Specialist: Tatiana Hartman Attending Provider: Bandar Miles MD Summary 1. Complete two-dimensional, color flow and Doppler transthoracic echocardiogram is performed. 2. Left ventricular chamber dimension is normal. 3. Left ventricular systolic function is normal, estimated at 60-65. 4. There is mild concentric increased left ventricular wall thickness. 5. E/e' 10 is mildly elevated. 6. Left atrial chamber dimension is mildly enlarged. 7. There is moderate aortic valve sclerosis. 8. There is very mild aortic valve stenosis with a peak velocity of 239 cm/s, mean gradient of 10 mmHg, and aortic valve area of 2.1 cm2. 9. The mitral valve has a moderately calcified annulus. Left Ventricle E/e' 10 is mildly elevated. Left ventricular chamber dimension is normal. Left ventricular systolic function is normal, estimated at 60-65. There is mild concentric increased left ventricular wall thickness. Right Ventricle Right ventricular chamber dimension is normal. Right ventricular systolic function is normal and with normal TAPSE 2.6 cm. Left Atria Left atrial chamber dimension is mildly enlarged. Right Atria Right atrial chamber dimension is normal. Aortic Valve The aortic valve is trileaflet. There is moderate aortic valve sclerosis. There is very mild aortic valve stenosis with a peak velocity of 239 cm/s, mean gradient of 10 mmHg, and aortic valve area of 2.1 cm2. There is no aortic valve regurgitation. Pulmonic Valve There is no pulmonic regurgitation. Mitral Valve The mitral valve has a moderately calcified annulus. There is no mitral valve stenosis. There is no mitral valve regurgitation. Tricuspid Valve There is no tricuspid valve regurgitation. Pericardium/Pleural There is no pericardial effusion. Inferior Vena Cava Normal inferior vena cava with >50% collapse upon inspiration consistent with normal right atrial pressure, 5 mmHg. Aorta The aortic root size at the sinus of Valsalva is not well visualized. Left Ventricular Outflow Tract Name Value Normal LVOT 2D LVOT Diameter 2.0 cm LVOT Doppler LVOT Peak Velocity 133 cm/s LVOT Peak Gradient 6 mmHg LVOT Mean Gradient 3 mmHg LVOT VTI 37 cm LVOT VTI/AV VTI Ratio 0.7 LVOT Stroke Volume 118 ml LVOT CO 10.2 l/min LVOT CI 4.7 l/min/m2 Pulmonic Valve Name Value Normal RVOT Doppler RVOT Peak Velocity 102 cm/s RVOT Peak Gradient 4 mmHg PV Doppler PV Peak Velocity 110 cm/s PV Peak Gradient 5 mmHg Mitral Valve Name Value Normal MV Diastolic Function MV E Peak Velocity 66 cm/s MV A Peak Velocity 100 cm/s MV E/A 0.7 MV Decel Time (PW) 372 ms MV Annular TDI MV E/e' (Septal) 11.9 MV E/e' (Lateral) 9.7 MV E/e' (Average) 10.8 Tricuspid Valve Name Value Normal Estimated PAP/RSVP RA Pressure 5 mmHg <=5 Aortic Valve Name Value Normal AV Doppler AV Peak Velocity 239 cm/s AV Peak Gradient 23 mmHg AV Mean Gradient 10 mmHg AV VTI 56 cm AV Area (Cont Eq VTI) 2.1 cm2 >=3.0 AV Area (Cont Eq Sushant) 1.8 cm2 AV DI (Sushant) 0.55 AV Regurgitation 2D LVOT Area 3.2 cm2 Ventricles Name Value Normal LV Dimensions 2D/MM IVS Diastolic Thickness (2D) 1.3 cm 0.6-1.0 LVID Diastole (2D) 4.2 cm 4.2-5.8 LVIW Diastolic Thickness (2D) 1.4 cm 0.6-1.0 LVID Systole (2D) 2.8 cm 2.5-4.0 LVOT Diameter 2.0 cm LV Mass (2D Cubed) 215.75 g 88.00-224.00 LV Mass Index (2D Cubed) 98 g/m2 49-115 Relative Wall Thickness (2D) 0.67 <=0.42 LV Fractional Shortening/Ejection Fraction 2D/MM LV Fractional Shortening (2D) 35 % 25-43 LV EF (2D Teichholz) 64 % LV Diastolic Volume (4C MOD) 130 ml LV EF (4C MOD) 57 % LV Diastolic Volume (2C MOD) 126 ml LV EF (2C MOD) 53 % LV Diastolic Volume (BP MOD) 129 ml 62-150 LV Diastolic Volume Index (BP MOD) 59 ml/m2 34-74 LV Systolic Volume (BP MOD) 57 ml 21-61 LV Systolic Volume Index (BP MOD) 26 ml/m2 11-31 LV EF (BP MOD) 55 % 52-72 LV Diastolic Length (4C) 9.6 cm LV Systolic Length (4C) 8.2 cm LV Stroke Volume (4C MOD) 74 ml RV Dimensions 2D/MM TAPSE 2.6 cm >=1.7 Atria Name Value Normal LA Dimensions LA Volume (4C A-L) 56 ml LA Volume (BP A-L) 62 ml RA Dimensions RA Area (4C) 17.9 cm2 <=18.0 Report Signatures
== END 2024-12-21 09:34 | disposition home or self-care (01) ==
LOC: ANHCARD 09:35
PROVIDERS: PCP Internal Medicine; Visit Provider Internal Medicine
DX: R94.31 Abnormal electrocardiogram [ECG] [EKG] (principal); I35.0 Nonrheumatic aortic (valve) stenosis
CPT/HCPCS: 93306

== ENCOUNTER 2025-01-25 10:08 | Outpatient (CLI) | payer MEDICARE, SELFPAY ==
--- NOTE | ~2025-01-25 | CT_ITS ---
EXAMINATION: CT lung screening DATE: 01/25/2025 10:34 INDICATION: Personal history of nicotine dependence TECHNIQUE: Computed tomography (CT) of the chest was performed without intravenous contrast. The dose -length product was 191.30 mGy-cm. COMPARISON: None FINDINGS: No enlarged mediastinal or hilar lymph nodes. Cholecystectomy. Heart is not enlarged. There are a few coronary artery calcifications. Thoracic aort a is not aneurysmal. Visualized tracheobronchial tree is patent. No pneumothorax. No pleural effusion. No focal pulmonary consolidation. No pulmonary mass. No pulmonary nodules. Bones appear osteopenic. Multilevel degenerat jose d change in the visualized spine. IMPRESSION: 1. Lung-RADS category 1: Negative. Continue annual screening with noncontrast low-dose chest CT in 12 months. Reviewed, dictated and finalized at location A. IMPRESSION: 1. Lung-RADS category 1: Negative. Continue annual screening with noncontrast l ow-dose chest CT in 12 months.
--- OUTSIDE RECORDS SUMMARY | 2025-01-25 10:23 | XMS_ITS | Clinical Summary ---
Author Organization [facility] Address [address] [place] [id number] Care Team Providers Care Glass Fitter Name Role Phone Bandar Miles MD Primary Care Provider [phone] Social History Tobacco Use Types Packs/Day Years [...] complete this topic Insurance MEDICARE Care Teams Glass Fitter Relationship Specialty Start Date End Date Bandar Miles MD [address] [place] [address] PCP - General 11/02/22
--- OUTSIDE RECORDS SUMMARY | 2025-01-25 10:23 | XMS_ITS | Clinical Summary ---
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
--- OUTSIDE RECORDS SUMMARY | 2025-01-25 10:23 | XMS_ITS | Clinical Summary ---
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
== END 2025-01-25 10:09 | disposition home or self-care (01) ==
PROVIDERS: PCP Internal Medicine; Visit Provider Internal Medicine
DX: Z12.2 Encounter for screening for malignant neoplasm of respiratory organs (principal); Z87.891 Personal history of nicotine dependence
CPT/HCPCS: 71271